=== PATIENT | female | born 1950 | race African-American/Black ===

== ENCOUNTER 2017-03-28 13:04 | Inpatient (IN) ==
--- NOTE | 2017-03-28 13:32 | Diag Imaging Result Doc PS360 ---
EXAM: HEAD W/O CONTRAST HISTORY: Stroke Alert- Brain attack TECHNIQUE: Dose reduction technique COMPARISON: 09/24/2010 FINDINGS: No parenchymal hemorrhage. No epidural or subdural hematoma. No subarachnoid hemorrhage. No mass identified on this noncontrasted exam. No hydrocephalus. No sinus opacification. Small old left frontoparietal infarct. This was not present on the prior exam. There is diffuse atrophy. Mild chronic microvascular ischemic changes.. IMPRESSION: 1.No hemorrhage 2.Atrophy with chronic microvascular ischemic changes and old left frontoparietal infarct Electronically signed by Lele Black 03/28/2017 1:29 PM
[2017-03-28] MEDS ORDERED: NS 1,000 ML IV ONE (13:35)
--- NOTE | 2017-03-28 14:01 | Diag Imaging Result Doc PS360 ---
EXAM: CHEST-PORTABLE HISTORY: AMS TECHNIQUE: AP COMPARISON: 02/03/2017 FINDINGS: The lungs are well expanded. The heart is not enlarged. The vessels are not distended. There are surgical clips in the right hilum. No pneumonia. No pleural effusions identified. IMPRESSION: Negative chest Electronically signed by Lele Black 03/28/2017 1:59 PM
--- NOTE | 2017-03-28 14:03 | EKG Report ---
Test Performed on : 03/28/2017 1:46:03 PM Test Reason : AMS Blood Pressure : / mmHG Vent. Rate : 063 BPM Atrial Rate : 063 BPM P-R Int : 162 ms QRS Dur : 092 ms QT Int : 436 ms P-R-T Axes : 065 000 015 degrees QTc Int : 446 ms Normal sinus rhythm. Possible Left atrial enlargement Borderline ECG When compared with ECG of 22-FEB-2016 09:39, premature ventricular complexes. are no longer present T wave inversion less evident in Anterior leads Unconfirmed Result
[2017-03-28 14:15] LABS: MANUAL DIFF NEEDED? NO
[2017-03-28 14:23] LABS: BASO% 0.4 % (0.0-0.8); EOS# 0.43 X1000 (0.0-0.7); EOS% 8.3 % (0.0-10.0); HEMATOCRIT 43.1 % (37.0-47.0); HEMOGLOBIN 14.3 g/dL (12.0-16.0); LYMPH# 1.06 X1000 (1.2-3.4); LYMPH% 20.5 % (20.5-51.1); MCH 31.9 PG (27-31); MCHC 33.2 g/dL (33-37); MCV 96.2 FL (81-99); MONO# 0.41 X1000 (0.11-0.59); MONO% 7.9 % (1.7-9.3); MPV 11.6 FL (7.4-10.4); NEUT% 62.9 % (42.2-75.2); PLT 192 X1000 (130-400); RBC 4.48 XMIL (4.2-5.4)
[2017-03-28 14:32] LABS: INR 1.08; PROTIME 11.4 Seconds (9.2-11.7)
[2017-03-28] MEDS ORDERED: NORCO-7.5 PO ONE (14:45)
[2017-03-28 14:47] LABS: AGAP 12; ALBUMIN 4.1 g/dL (3.5-5.0); ALKALINE PHOSPHATASE 70 U/L (32-104); BUN 10 mg/dL (8-22); CALCIUM 9.3 mg/dL (8.8-10.2); CHLORIDE 101 mmol/L (98-107); CK PROFILE 64 U/L (24-173); COSMO 276; GOT 21 U/L (10-30); GPT 14 U/L (10-36); POTASSIUM 4.2 mmol/L (3.5-5.1); SODIUM 139 mmol/L (136-145); TCO2 26 mmol/L (25-35); TOTAL BILIRUBIN 0.44 mg/dL (0.20-1.00); TOTAL PROTEIN 8.4 g/dL (6.3-8.3)
[2017-03-28 15:35] LABS: URINE CULTURE NEEDED? NO; URINE MICRO REVIEW NEEDED? NO; URINE SOURCE CLEAN CATCH
[2017-03-28 15:42] LABS: BILIRUBIN URINE NEGATIVE (NEGATIVE); BLOOD URINE NEGATIVE (NEGATIVE); COLOR STRAW; GLUCOSE URINE NEGATIVE (NEGATIVE); LEUKOCYTES URINE NEGATIVE (NEGATIVE); NITRITE URINE NEGATIVE (NEGATIVE); PROTEIN URINE NEGATIVE (NEGATIVE); SP GRAVITY URINE 1.003; TURBIDITY URINE CLEAR (CLEAR); UR EPITHELIAL CELLS <10 /HPF (<10); URINE BACTERIA NEGATIVE /HPF; URINE RBC <10 /HPF (<10); URINE WBC <10 /HPF (<10); UROBILINOGEN URINE NORMAL (NORMAL)
[2017-03-28 15:50] LABS: UR AMPHETAMINES QUAL NONE DETECTED (NONE DETECT); UR BARBITUATES QUAL NONE DETECTED (NONE DETECT); UR BENZODIAZEPIN QUAL NONE DETECTED (NONE DETECT); UR CANNABINOIDS QUAL NONE DETECTED (NONE DETECT); UR COCAINE QUAL NONE DETECTED (NONE DETECT); UR METHADONE QUAL NONE DETECTED (NONE DETECT); UR OPIATES QUAL NONE DETECTED (NONE DETECT); UR OXYCODONE QUAL NONE DETECTED (NONE DETECT); UR PCP QUAL NONE DETECTED (NONE DETECT)
--- NOTE | 2017-03-28 16:04 | PROVIDER DOCUMENTATION ---
This chart was entered by Zahraa Talavera Scribe, acting as scribe for Elsi Montana MD. HPI-Neurological Disorder - General Chief Complaint: Stroke-Like Symptoms Stated Complaint: STROKE LIKE SX Time Seen by Provider: 03/28/17 13:33 Source: patient, family Allergies/Adverse Reactions: Patient Allergies Allergy/AdvReac Type Severity Reaction Status Date / Time No Known Allergies Allergy Verified 03/28/17 14:59 Home Medications: Home Medication List Medication Instructions Recorded Confirmed Last Taken Type Unobtainable [Home Meds 03/28/17 03/28/17 Unknown History Unobtainable] - History of Present Illness-Neuro Nature of Presenting Problem: 66 yo F presents to the ER with complaint of slurred speech, staggering gate, and WOODS onset this morning. Daughter reports speech and gate have improved since this morning. Pt denies CP, SOB, abdominal pain. States she drinks 7-8 beers daily, had about 8 yesterday. Onset/Duration: reports: this morning Cognitive Baseline: alert, oriented x3 Gait Baseline: walks without assistance Associated Symptoms: reports: headache, slurred speech. denies: nausea, vomiting Review of Systems - Adult - REVIEW OF SYSTEMS - ADULT Constitutional: denies: chills, fever Eyes: reports: no symptoms reported Ears, Nose, Mouth & Throat: reports: no symptoms reported Cardiovascular: denies: chest pain, palpitations Respiratory: denies: cough, shortness of breath Gastrointestinal: denies: diarrhea, nausea, vomiting Genitourinary: reports: no symptoms reported Musculoskeletal: reports: no symptoms reported Integumentary: reports: no symptoms reported Neurological: reports: slurred speech. denies: dizziness/vertigo, headache/ migraines Psychiatric: reports: no symptoms reported Endocrine: reports: no symptoms reported Hematologic/Lymphatic: reports: no symptoms reported Allergic/Immunologic: reports: no symptoms reported All Other Systems: Reviewed and Negative Past History - Adult - PAST MEDICAL HISTORY-ADULT Review of Records: reports: Nursing Assessment Review, Medications Reviewed Gastrointestinal: reports: GERD, GI bleed, polyps Neurological: reports: TIA - PRIOR SURGERIES/PROCEDURES Surgical/Procedure History: reports: colonoscopy - IMMUNIZATION STATUS Childhood Immunizations: See Nurse Assessment Flu Vaccine: See Nurse Assessment Physical Exam- Neurological - Physical Exam-Neuro Initial Vital Signs Reviewed: Yes General Appearance: alert, no apparent distress Eye Exam: bilateral eye: normal inspection, PERRL, EOMI HENMT: normocephalic/atraumatic, normal ENT inspection, TMs normal, pharynx normal Head Injury: no evidence of injury. negative: ecchymosis, tenderness Neck: supple, normal inspection Respiratory: no respiratory distress, no accessory muscle use Cardiovascular: normal peripheral pulses, regular rate, rhythm Extremity: normal range of motion, non-tender, normal gait, normal inspection senior information security consultant Exam: normal hearing, normal speech, PERRL Coordination/Gait: normal finger to nose, normal gait Neurologic: grossly normal, no motor/sensory deficits Integumentary: normal color, warm/dry Psych/Mental Status: normal mood/affect, normal thought content, normal thought process, oriented x 3 Progress - PLAN OF CARE/RESULTS Progress/Plan/Lab Results: Vital Signs - 8 hr 03/28/17 13:10 03/28/17 15:31 Temperature 98.3 F Pulse Rate 79 73 Respiratory Rate 18 Blood Pressure 171/121 147/120 O2 Sat by Pulse Oximetry 100 99 Laboratory Results - last 24 hr 03/28/17 03/28/17 03/28/17 14:03 14:03 14:03 WBC 5.18 RBC 4.48 Hgb 14.3 Hct 43.1 MCV 96.2 MCH 31.9 H MCHC 33.2 RDW Std Deviation 13.9 Plt Count 192 MPV 11.6 H Immature Gran % (Auto) 0.0 Neut % (Auto) 62.9 Lymph % (Auto) 20.5 [place] % (Auto) 7.9 Eos % (Auto) 8.3 Baso % (Auto) 0.4 Immature Gran # (Auto) 0.00 Neut # (Auto) 3.26 Lymph # (Auto) 1.06 L [place] # (Auto) 0.41 Eos # (Auto) 0.43 Baso # (Auto) 0.02 PT INR PTT (Actin FS) Sodium 139 Potassium 4.2 Chloride 101 Carbon Dioxide 26 Anion Gap 12 BUN 10 Creatinine 0.7 Estimated GFR/1.73 m2 > 60 BUN/Creatinine Ratio 14 Glucose 94 Calculated Osmolality 276 Calcium 9.3 Total Bilirubin 0.44 AST 21 ALT 14 Alkaline Phosphatase 70 Creatine Kinase 64 Troponin T Total Protein 8.4 H Albumin 4.1 Globulin 4.3 Albumin/Globulin Ratio 1.0 Plasma Lactate Urine Source Urine Color Urine Turbidity Urine pH Ur Specific Bimble Urine Protein Ur Glucose (Stick) Ur Ketones (Stick) Urine Blood Urine Nitrite Urine Bilirubin Urobilinogen Dipstick Urine Leukocytes Urine WBC (Auto) Urine RBC (Auto) U Epithel Cells (Auto) Urine Bacteria (Auto) Urine Opiates Screen Ur Oxycodone Screen Ur Methadone, Qual Ur Barbiturates Screen Ur Phencyclidine Scrn Ur Amphetamines Screen U Benzodiazepines Scrn Urine Cocaine Screen U Cannabinoids Screen Plasma/Serum Ethyl Alc 03/28/17 03/28/17 03/28/17 14:03 14:03 14:15 WBC RBC Hgb Hct MCV MCH MCHC RDW Std Deviation Plt Count MPV Immature Gran % (Auto) Neut % (Auto) Lymph % (Auto) [place] % (Auto) Eos % (Auto) Baso % (Auto) Immature Gran # (Auto) Neut # (Auto) Lymph # (Auto) [place] # (Auto) Eos # (Auto) Baso # (Auto) PT 11.4 INR 1.08 PTT (Actin FS) 28.0 Sodium Potassium Chloride Carbon Dioxide Anion Gap BUN Creatinine Estimated GFR/1.73 m2 BUN/Creatinine Ratio Glucose Calculated Osmolality Calcium Total Bilirubin AST ALT Alkaline Phosphatase Creatine Kinase Troponin T < 0.010 Total Protein Albumin Globulin Albumin/Globulin Ratio Plasma Lactate 1.5 Urine Source Urine Color Urine Turbidity Urine pH Ur Specific [place] Urine Protein Ur Glucose (Stick) Ur Ketones (Stick) Urine Blood Urine Nitrite Urine Bilirubin Urobilinogen Dipstick Urine Leukocytes Urine WBC (Auto) Urine RBC (Auto) U Epithel Cells (Auto) Urine Bacteria (Auto) Urine Opiates Screen Ur Oxycodone Screen Ur Methadone, Qual Ur Barbiturates Screen Ur Phencyclidine Scrn Ur Amphetamines Screen U Benzodiazepines Scrn Urine Cocaine Screen U Cannabinoids Screen Plasma/Serum Ethyl Alc 03/28/17 03/28/17 15:30 15:30 WBC RBC Hgb Hct MCV MCH MCHC RDW Std Deviation Plt Count MPV Immature Gran % (Auto) Neut % (Auto) Lymph % (Auto) [place] % (Auto) Eos % (Auto) Baso % (Auto) Immature Gran # (Auto) Neut # (Auto) Lymph # (Auto) [place] # (Auto) Eos # (Auto) Baso # (Auto) PT INR PTT (Actin FS) Sodium Potassium Chloride Carbon Dioxide Anion Gap BUN Creatinine Estimated GFR/1.73 m2 BUN/Creatinine Ratio Glucose Calculated Osmolality Calcium Total Bilirubin AST ALT Alkaline Phosphatase Creatine Kinase Troponin T Total Protein Albumin Globulin Albumin/Globulin Ratio Plasma Lactate Urine Source CLEAN CATCH Urine Color STRAW Urine Turbidity CLEAR Urine pH 6.0 Ur Specific [place] 1.003 Urine Protein NEGATIVE Ur Glucose (Stick) NEGATIVE Ur Ketones (Stick) NEGATIVE Urine Blood NEGATIVE Urine Nitrite NEGATIVE Urine Bilirubin NEGATIVE Urobilinogen Dipstick NORMAL Urine Leukocytes NEGATIVE Urine WBC (Auto) <10 Urine RBC (Auto) <10 U Epithel Cells (Auto) <10 Urine Bacteria (Auto) NEGATIVE Urine Opiates Screen NONE DETECTED Ur Oxycodone Screen NONE DETECTED Ur Methadone, Qual NONE DETECTED Ur Barbiturates Screen NONE DETECTED Ur Phencyclidine Scrn NONE DETECTED Ur Amphetamines Screen NONE DETECTED U Benzodiazepines Scrn NONE DETECTED Urine Cocaine Screen NONE DETECTED U Cannabinoids Screen NONE DETECTED Plasma/Serum Ethyl Alc Orders Category Date Time Status Cardiac Monitoring DIRECTED Care 03/28/17 13:35 Active Finger Stick Blood Sugar (ED) DIRECTED Care 03/28/17 13:35 Active Saline Loc NOW Care 03/28/17 13:35 Active CHEST-PORTABLE [RAD] Stat Exams 03/28/17 13:35 Completed HEAD W/O CONTRAST [CT] Stat Exams 03/28/17 13:13 Completed MRA BRAIN W/O CONTRAST [MRI] Stat Exams 03/28/17 15:55 Ordered MRA NECK W/O CONT [MRI] Stat Exams 03/28/17 15:55 Ordered MRI BRAIN W/O CONTRAST [MRI] Stat Exams 03/28/17 15:55 Ordered ALCOHOL BLOOD Stat Lab 03/28/17 14:03 Completed CBC WITH ELECTRONIC DIFF [HEME] Stat Lab 03/28/17 14:03 Completed CK PROFILE [SP CHEM] Stat Lab 03/28/17 14:03 Completed COMPREHENSIVE METABOLIC PANEL [CHEM] Stat Lab 03/28/17 14:03 Completed LACTATE, PLASMA [CHEM] Stat Lab 03/28/17 14:15 Completed PROTIME WITH INR [COAG] Stat Lab 03/28/17 14:03 Completed PTT [COAG] Stat Lab 03/28/17 14:03 Completed TROPONIN T Stat Lab 03/28/17 14:03 Completed URINALYSIS W/POSS RFLX CULT-1 [URINALYSIS] Stat Lab 03/28/17 15:30 Completed URINE DRUG SCREEN Stat Lab 03/28/17 15:30 Completed 0.9% Sodium Chloride Inj [Ns] 1,000 ml Med 03/28/17 13:35 Active IV 150 mls/hr Hydrocodone/APAP 7.5 mg/325 mg [Jackson-7.5] Med 03/28/17 14:45 Discontinued 1 each PO NOW ONE Pulse Oximetry Stat Oth 03/28/17 13:35 Active EKG [EKG] Stat Ther 03/28/17 13:35 Draft Result Diagrams: 03/28/17 14:03 03/28/17 14:03 - EKG 1 Time of EKG reading by physician:: 13:46 EKG Read and Signed by:: Elsi Montana EKG Interpretation (*Must complete 3 of following elements*): Abnormal ( borderline) Rate: 63 Rhythm: normal sinus rhythm [place]: normal QRS: normal OR Interval: normal ST Wave: normal Comments: possible L atrial enlargement - XRAY 1 XRAY Study: Chest Impression: Normal (negative, per radiologist) - CT/MRI 1 CT Study: Head Impression: See EMR Report (no hemorrhage, atrophy with chronic microvascular ischemic changes and old L frontoparietal infarct, per radiologist) - CONSULTS/PCP/HOSPITALIST Notification #1 *Consult/PCP/Hospitalist*: Dr. Muñoz/Colleen Time Discussed: 16:02 Consult Disposition: Admit Departure - Departure Date of Disposition Decision: 03/28/17 Time of Disposition Decision: 16:03 DIAGNOSIS: TIA (transient ischemic attack), Alcohol withdrawal Disposition: ADMITTED INPATIENT 09 Certified Medical Emergency: Emergent Condition: Stable Referrals and Follow-Ups: Rm Levi MD [Primary Care Provider] - - Critical Care Note This patient required my direct & personal management of CC.: No This chart was documented by the indicated scribe, (Zahraa Talavera Scribe) and accurately reflects the services I performed and decisions made by me, Elsi Montana MD, as attested by the provider's signature.
--- NOTE | 2017-03-28 16:40 | Diag Imaging Result Doc PS360 ---
EXAM: MRI BRAIN W/O CONTRAST HISTORY: stroke symptoms TECHNIQUE: Axial, sagittal, and coronal images obtained COMPARISON: None. FINDINGS: There is evidence of a small recent infarct posteriorly in the left temporal and occipital lobes. Old left frontoparietal infarct. There is diffuse atrophy and addition to chronic microvascular ischemic changes. No mass or midline shift. No hydrocephalus. No epidural or subdural fluid collection. IMPRESSION: 1. Small faint recent left posterior temporal and occipital infarct 2. Old left frontoparietal infarct 3. Atrophy with chronic microvascular ischemic changes Electronically signed by Lele Black 03/28/2017 4:38 PM
--- NOTE | 2017-03-28 16:45 | Diag Imaging Result Doc PS360 ---
EXAM: MRA BRAIN W/O CONTRAST HISTORY: stroke symptoms TECHNIQUE: MIP images COMPARISON: None. FINDINGS: There is normal flow in each distal internal carotid artery. The anterior and middle cerebral arteries are only faintly seen. Normal flow in the distal vertebral arteries and basilar artery. Normal flow in the posterior cerebral arteries. IMPRESSION: Suboptimal exam with poor imaging of the anterior and middle cerebral arteries, but no focal stenosis or occlusion involving either distal internal carotid artery, basilar artery, or posterior cerebral arteries. Electronically signed by Lele Black 03/28/2017 4:42 PM
--- NOTE | 2017-03-28 16:47 | Diag Imaging Result Doc PS360 ---
EXAM: MRA NECK W/O CONT HISTORY: stroke symptoms TECHNIQUE: MIP images COMPARISON: None. FINDINGS: The proximal vertebral and common carotid arteries are are only faintly seen. No definite stenosis. Normal flow within each mid and distal common carotid artery. Normal proximal and mid internal carotid arteries. Normal mid vertebral arteries. IMPRESSION: No stenosis or occlusion within either common carotid artery or within either proximal internal carotid artery. Electronically signed by Lele Black 03/28/2017 4:45 PM
[2017-03-28 17:23] LABS: HDL 110 mg/dL (45-65); LDL 83 mg/dL; TRIGLYCERIDES 177 mg/dL (35-135); VLDL 35 mg/dL
[2017-03-28 17:24] LABS: HEMOGLOBIN A1C 4.9 % (4.8-6.0)
[2017-03-28] MEDS ORDERED: M.V.I.-12 10 ML, FOLIC ACID 1 MG, MAGNESIUM SULFATE 1 GM, THIAMINE 100 MG in NS 1,000 ML IV ONE (18:00)
[2017-03-28] MEDS: LIPITOR PO SCH (18:18)
[2017-03-28] MEDS: ASPIRIN PO SCH (18:18)
--- NOTE | 2017-03-28 19:06 | HISTORY AND PHYSICAL ---
PRIMARY CARE PROVIDER: Rm Levi. CHIEF COMPLAINT: Difficulty with speech. HISTORY OF PRESENT ILLNESS: Ms. Jose Manuel Gao is a 66-year-old female with a medical history of GI bleed six years ago, left CVA in the past, right breast cancer status post mastectomy, and alcohol abuse. She drank around 6 beers yesterday and went to bed around 9 p.m. She woke up about 08:30 this morning. She feels like she was normal at that time but started noticing her speech was slurred around 9 a.m. She also developed a left frontotemporal headache and generalized weakness. When her family came to see her they noticed that she was weak, but no increased weakness on one side versus the other. They noticed her stuttering. She denies any fever, chills, nausea, vomiting, or diarrhea. She denies any numbness or tingling. Neuro assessment is only positive for dysarthria with occasional mild expressive aphasia, and she is completely oriented. Strength is equal in all 4 extremities. A CAT scan of the brain showed her old left frontoparietal infarct. Given the fact that she still continued to have dysarthria, it was decided to admit for observation, MRI, MRA of the brain. MRI of the brain showed a small faint recent left posterior temporal and occipital infarct, and it also showed the old left frontoparietal infarct. Carotid arteries were clear. Will admit to the medical floor, allow for permissive hypertension, start her on aspirin and statin. PAST MEDICAL HISTORY: GI bleed 6 years ago. Right breast cancer status post mastectomy. Left frontoparietal infarct that was old. SURGICAL HISTORY: Right mastectomy, hysterectomy. SOCIAL HISTORY: Quit smoking 18 years ago but prior to that smoked 1 pack per day since age of 17. Drinks a half a case of beer or less per day, denies illicit drug use, and lives with her . FAMILY HISTORY: Her father had gastric cancer. There is hypertension and asthma in the family. REVIEW OF SYSTEMS: Fourteen point review of systems were complete and all were negative except for those mentioned above in HPI. PHYSICAL EXAMINATION: VITAL SIGNS: Temperature 98.3 degrees, heart rate 73, respiratory rate 18, blood pressure 147/120, saturation 99% on room air. She is 5 feet 6 inches tall, 142 pounds. BMI is 22.9. GENERAL: Ms. Jose Manuel Gao is a right-hand dominant, 66-year-old female who is in no acute distress. She is able answer questions appropriately but with slurred speech, and she is in no acute distress. HEENT: Atraumatic, normocephalic. Pupils are equal, round, reactive to light. Extraocular movements are intact. Mucous membranes are moist. NECK: No JVD or carotid bruits noted. CARDIOVASCULAR: S1, S2. Regular rate and rhythm. No rubs, gallops, murmurs. PULMONARY: Clear to auscultation. Bilateral breath sounds. No accessory muscle use or work of breathing noted. GI: Soft, nontender, nondistended. Positive bowel sounds x4. EXTREMITIES: No edema noted. +2 dorsalis and radial pulses. SKIN: Warm, dry, intact. NEUROLOGIC: She was able to move all extremities, 5/5 strength. She had equal pupils that were reactive. Her tongue was midline. She had facial symmetry. No sensory loss issues. LABORATORY DATA: White blood cells 5000, hemoglobin 14, hematocrit 43, platelet count 192,000. INR 1.08, PTT is 28. Sodium 139, potassium 4.2, BUN 10, creatinine 0.7, glucose 94. Hemoglobin A1c is 4.9. Bilirubin 0.44, AST 21, ALT 14. CK 64. Troponin less than 0.01. Protein is 8.4. Triglycerides 177, cholesterol total is 228. Serum lactate is 1.5. Urinalysis negative. Urine drug screen negative. Alcohol level negative. IMAGING: Head CT: No hemorrhage. Atrophy with chronic microvascular ischemic changes and an old left frontoparietal infarct. Chest x-ray negative. EKG: Normal sinus rhythm, rate is 63, QTc is 446. Brain MRA: Suboptimal exam with poor imaging of the anterior and middle cerebral arteries but no focal stenosis or occlusion including either distal internal carotid artery, basilar artery or posterior cerebral arteries. Brain MRI: Small faint recent left posterior temporal occipital infarct, old left frontoparietal infarct, atrophy with chronic microvascular ischemic changes. Neck MRA: No stenosis or occlusion within either common carotid artery or within either proximal internal carotid artery. ASSESSMENT AND PLAN: 1. A small, faint, recent left posterior temporal and occipital infarct, also with old left frontoparietal infarct. Residuals at this time are dysarthria and the occasional expressive aphasia which the family states they feel is improving since she has been here. We will allow for permissive hypertension, start her on aspirin and a statin. Consult Neurology. Consult Physical Therapy and Speech Therapy, and perform q.1 hour neuro checks. Will also give IV fluid hydration throughout the night. 2. Alcohol abuse. Apparently she drinks a half a case or less of beer per day. We will do p.r.n. Ativan and daily banana bag. 3. Gastrointestinal bleed history approximately 6 years ago. Will monitor closely for gastric irritation secondary to aspirin use. 4. History of rectal polyps. The patient denies any symptoms of gastrointestinal bleeding at this time. Dictated by ZAK Hernandez for Isael Reilly MD cc: ZAK Hernandze MD Wayne E. Thomas, MD
[2017-03-28] MEDS ORDERED: ATIVAN IV PRN (20:56)
[2017-03-28] MEDS ORDERED: FIORICET PO PRN (20:56)
[2017-03-28] MEDS ORDERED: TYLENOL PO PRN (20:56)
[2017-03-28] MEDS ORDERED: ZOFRAN IV PRN (20:56)
[2017-03-29 06:15] LABS: MANUAL DIFF NEEDED? NO
[2017-03-29 06:28] LABS: BASO% 0.5 % (0.0-0.8); EOS# 0.48 X1000 (0.0-0.7); EOS% 11.4 % (0.0-10.0); HEMATOCRIT 41.6 % (37.0-47.0); HEMOGLOBIN 13.8 g/dL (12.0-16.0); LYMPH# 1.29 X1000 (1.2-3.4); LYMPH% 30.6 % (20.5-51.1); MCH 32.5 PG (27-31); MCHC 33.2 g/dL (33-37); MCV 98.1 FL (81-99); MONO% 7.1 % (1.7-9.3); MPV 11.7 FL (7.4-10.4); NEUT% 50.4 % (42.2-75.2); PLT 163 X1000 (130-400); RBC 4.24 XMIL (4.2-5.4)
[2017-03-29 06:36] LABS: AGAP 12; ALBUMIN 3.8 g/dL (3.5-5.0); ALKALINE PHOSPHATASE 63 U/L (32-104); BUN 7 mg/dL (8-22); CALCIUM 8.8 mg/dL (8.8-10.2); CHLORIDE 105 mmol/L (98-107); COSMO 279; GOT 24 U/L (10-30); GPT 13 U/L (10-36); POTASSIUM 3.7 mmol/L (3.5-5.1); SODIUM 141 mmol/L (136-145); TCO2 24 mmol/L (25-35); TOTAL BILIRUBIN 0.58 mg/dL (0.20-1.00); TOTAL PROTEIN 7.6 g/dL (6.3-8.3)
[2017-03-29 06:55] LABS: INR 1.11; PROTIME 11.7 Seconds (9.2-11.7); PTT 28.5 Seconds (22.0-36.0)
[2017-03-29] MEDS: M.V.I.-12 10 ML, FOLIC ACID 1 MG, MAGNESIUM SULFATE 1 GM, THIAMINE 100 MG in NS 1,000 ML IV SCH (09:00)
[2017-03-29] MEDS: LIPITOR PO SCH (09:01)
[2017-03-29] MEDS: ASPIRIN PO SCH (09:01)
--- NOTE | 2017-03-29 14:14 | PROGRESS NOTE ---
DATE: 03/29/2017 SUBJECTIVE: Patient reports feeling fine. Denies any headache, nausea, or vomiting. OBJECTIVE: Vital Signs: Temperature 98.2 degrees, heart rate 63, respiratory rate 20, blood pressure 140/75, O2 saturation 98% on room air. General: This is a chronically ill-looking, also looking older than her age, 66-year-old female lying in bed in no acute distress. HEENT: Head is normocephalic and atraumatic. Anicteric sclerae and pale conjunctivae. Mucous membranes moist. Neck: Supple. No JVD noted. No carotid bruits. No lymphadenopathy. No thyromegaly. Cardiovascular: S1 and S2 heard. No murmurs, gallops, or rubs. Regular rate and rhythm. Respiratory: Clear bilaterally to auscultation. No work of breathing or using accessory muscles. Abdomen: Soft, nontender to palpation. Bowel sounds present. No organomegaly. Extremities: No clubbing, cyanosis, or edema. Peripheral pulses present in both legs. Neurological: Patient has expressive aphasia. Muscle strength 5/5 in all 4 extremities. No dysmetria. Gait not evaluated. Sensation is intact. Babinski negative. LABORATORY DATA: The labs are unremarkable, with hemoglobin A1c that is normal and the cholesterol is 228. ASSESSMENT AND PLAN: 1. Left posterior temporal and occipital infarct. Stable. As a residual, she has expressive aphasia. Physical Therapy is working with this patient. Swallowing function is okay, so she is eating Healthy Heart diet. My plan is to keep this patient over the weekend here working with Physical Therapy, and on Friday, if this patient is able to move by herself, we will probably set up speech therapy and physical therapy as an outpatient. 2. Alcohol abuse. The patient is on Ativan p.r.n., but of course she did not show any signs of alcohol withdrawal. 3. History of gastrointestinal bleeding. The hemoglobin is stable so far. The patient is on Protonix. We will continue with the same management. 4. History of rectal polyps. Aware. cc: Isael Reilly MD
[2017-03-30] MEDS: ASPIRIN PO SCH (08:37)
[2017-03-30] MEDS: LIPITOR PO SCH (08:37)
[2017-03-30] MEDS: M.V.I.-12 10 ML, FOLIC ACID 1 MG, MAGNESIUM SULFATE 1 GM, THIAMINE 100 MG in NS 1,000 ML IV SCH (10:31)
--- NOTE | 2017-03-30 14:25 | ECHO REPORT ---
ORDER DATE: 03/29/2017 ECHOCARDIOGRAPHIC MEASUREMENTS: 1. Interventricular septum 1.2. 2. Left ventricular posterior wall 1.1. 3. Diastolic diameter 4.0. 4. Left atrium 3.8. 5. Aorta 2.8. FINDINGS: 1. Mitral valve was normal. 2. Tricuspid valve was normal. 3. Aortic valve leaflets are trileaflet. 4. Pulmonic valve was normal. 5. Normal left ventricular cavity size. Estimated ejection fraction of 65%. 6. There is trace mitral regurgitation. Mild tricuspid regurgitation. 7. Peak velocity across the tricuspid valve was 2.3 m/sec. Peak velocity across the aortic valve less than 2 m/sec. 8. By Doppler studies there is no aortic stenosis or regurgitation. 9. There is no pericardial effusion or obvious intracardiac mass or thrombus seen. cc: MD Susan Bro CRNP
--- NOTE | 2017-03-30 16:32 | PROGRESS NOTE ---
DATE: 03/30/2017 SUBJECTIVE: Patient reports feeling fine. No headache. No nausea or vomiting. No new neurological symptoms. OBJECTIVE: Vital Signs: Temperature 97.5 degrees, heart rate 69, respiratory rate 18, blood pressure 152/71. O2 saturation 100% on room air. General Examination: This is a chronically ill- looking and also looking older than her age, 66-year-old female lying in bed, in no acute distress. HEENT: Head is normocephalic, atraumatic. Anicteric sclerae and pale conjunctivae. Mucous membranes moist. Neck: Supple. No JVD noted. No carotid bruits. No lymphadenopathy. No thyromegaly. Cardiovascular: S1, S2 heard. No murmurs, gallops, or rubs. Regular rate and rhythm. Respiratory: Clear bilaterally to auscultation. No work of breathing or using accessory muscles. Abdomen: Soft, nontender to palpation. Bowel sounds present. No organomegaly. Extremities: No clubbing, cyanosis, or edema. Peripheral pulses present in both legs. Neurological: Patient has expressive aphasia and muscle strength 5/5 in all 4 extremities. No dysmetria. Gait not evaluated. Sensation is intact. Babinski negative. LABORATORY DATA: Reviewed. ASSESSMENT AND PLAN: 1. Left posterior temporal occipital infarct. Outside of residual, patient still has expressive aphasia. Physical therapy also working with this patient. Swallowing function is okay so she is feeling okay. We are going to keep this patient over the weekend. Working with physical therapy and we will set up most probably speech therapy as an outpatient. 2. Alcohol abuse, aware. Patient is on Ativan p.r.n., but of course, no signs of alcohol withdrawal. 3. History of gastrointestinal bleeding. Hemoglobin is stable so far. 4. History of rectal polyps, aware. cc: Isael Reilly MD
[2017-03-31] MEDS: ASPIRIN PO SCH (09:08)
[2017-03-31] MEDS: LIPITOR PO SCH (09:08)
[2017-03-31] MEDS: M.V.I.-12 10 ML, FOLIC ACID 1 MG, MAGNESIUM SULFATE 1 GM, THIAMINE 100 MG in NS 1,000 ML IV SCH (09:08)
[2017-03-31 11:33] VITALS: BP 152/71
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
--- NOTE | 2017-04-01 09:01 | DISCHARGE SUMMARY ---
ADMISSION DATE: 03/28/2017 DISCHARGE DATE: 03/31/2017 CONSULTATIONS: Naya Payne III, MD with Neurology. PERTINENT PROCEDURES: 1. Head CT showed no hemorrhage, atrophy with chronic microvascular ischemic changes and old left frontal parietal infarct. 2. Brain MRA: Suboptimal exam with poor imaging of the anterior and middle cerebral arteries, but no focal stenosis or occlusion involving either distal internal carotid artery. 3. Brain MRI showed small faint recent left posterior temporal and occipital infarct. Old left frontoparietal infarct. Atrophy with chronic microvascular ischemic changes. 4. Neck MRA showed no stenosis or occlusion within either common carotid artery or within either proximal internal carotid artery. 5. Echocardiogram showed an EF of 65%. DISCHARGE DIAGNOSES: 1. Left posterior temporal occipital infarct. The patient has worked with physical therapy. She will follow up with speech therapy on outpatient basis. 2. Alcohol abuse. Aware. The patient has been educated daily on abstinence. 3. Gastrointestinal bleed history. Hemoglobin and hematocrit has remained stable. 4. Rectal polyp history, aware. 5. Left-sided cerebrovascular accident in the past. Aware. 6. Right breast cancer, status post mastectomy. Aware. HOSPITAL COURSE: Ms. Gao is a 66-year-old female with a past medical history of GI bleed, left CVA, right breast cancer, status post mastectomy, alcohol abuse. The patient stated that she drank around 6 beers the day before admission. She went to bed about 9 p.m., woke up at 8:30 in the morning. She feels like she was normal, but started noticing that her speech was slurring around 9 a.m. She developed a left frontotemporal headache and generalized weakness. Her family came to visit her. They noticed she was weak, but no increased weakness on one side versus the other. They noticed her stuttering. She was brought to the ED. CAT scan of the brain showed an old left frontoparietal infarct. She was still having some dysarthria, so it was decided that the patient would be admitted for observation. She underwent MRI and MRA of the neck and brain. The MRI showed a small faint recent left posterior temporal and occipital infarct, as well as the old left frontoparietal infarct. Her carotids were clear. The patient again was admitted to the medical floor and allowed for permissive hypertension for 24 hours and started on aspirin and a statin and monitored for any alcohol withdrawal. She was given p.r.n. Ativan and a daily banana bag. Given her GI bleed history, that was 6 years ago, she was still monitored closely for any gastric irritation and/or bleeding secondary to her aspirin use. The patient did work with physical therapy. Neurology was consulted. They did not have anything to add other than for the patient to be aggressive with her management of her risk factors and encouraged her to follow up with her primary care physician and there was nothing urgently to add from neurological standpoint. The patient is going to be discharged home today to follow up with the speech therapist on an outpatient basis. VITAL SIGNS: Temperature is 98, heart rate 61, respirations 16, blood pressure 152/71, O2 is 96% on room air. DISCHARGE DIET: Healthy heart. DISCHARGE MEDICATIONS: 1. Aspirin 81 mg p.o. daily. 2. Lipitor 40 mg p.o. daily. FOLLOWUP: The patient is being discharged home with [facility] rehab access. That will start tomorrow at 2 p.m. as well as [facility]. Follow up with her primary care physician, Dr. Gurmeet Abdalla in 2 weeks, as well as follow up with the speech therapist outpatient. Patient can return to the ED for any worsening of symptoms. DISCHARGE TIME: 30 minutes. Dictated by ZAK Mac for Isael Reilly MD cc: MD Rm Epstein MD MTDD
== END 2017-03-31 15:18 | disposition home health service (06) ==
LOC: ED 13:04 → 3N 20:05
PROVIDERS: ATTEND Internal Medicine

== ENCOUNTER 2019-02-08 10:51 | Inpatient (IN) ==
[2019-02-08 12:14] LABS: INR 1.29; PROTIME 17.1 Seconds (11.0-16.0)
[2019-02-08 12:19] LABS: URINE SOURCE CATH
[2019-02-08 12:21] LABS: AGAP 10; ALB/GLOB RATIO 0.8; ALKALINE PHOSPHATASE 58 U/L (32-104); BUN 11 mg/dL (8-22); CALCIUM 8.4 mg/dL (8.8-10.2); CHLORIDE 107 mmol/L (98-107); COSMO 281; CREATININE 0.6 mg/dL (0.5-0.9); ESTIMATED GFR > 60; GLUCOSE 146 mg/dL (70-104); GOT 13 U/L (10-30); GPT 6 U/L (10-36); POTASSIUM 3.2 mmol/L (3.5-5.1); SODIUM 140 mmol/L (136-145); TCO2 23 mmol/L (25-35); TOTAL BILIRUBIN 0.27 mg/dL (0.20-1.00); TOTAL PROTEIN 6.9 g/dL (6.3-8.3)
[2019-02-08 12:26] LABS: BILIRUBIN URINE NEGATIVE (NEGATIVE); BLOOD URINE TRACE (NEGATIVE); COLOR ORANGE; GLUCOSE URINE NEGATIVE (NEGATIVE); KETONE URINE NEGATIVE (NEGATIVE); LEUKOCYTES URINE NEGATIVE (NEGATIVE); NITRITE URINE NEGATIVE (NEGATIVE); PROTEIN URINE 600 mg/dL (NEGATIVE); SP GRAVITY URINE 1.032; TURBIDITY URINE TURBID (CLEAR); UROBILINOGEN URINE NORMAL (NORMAL)
[2019-02-08 12:32] LABS: BASO# 0.04 X1000 (0.0-0.2); BASO% 0.5 % (0.0-0.8); EOS# 0.36 X1000 (0.0-0.7); EOS% 4.6 % (0.0-10.0); HEMATOCRIT 26.1 % (37.0-47.0); HEMOGLOBIN 8.2 g/dL (12.0-16.0); IMM GRAN# 0.02 X1000 (0.0-0.04); IMM GRAN% 0.3 % (0.0-0.5); LYMPH# 1.55 X1000 (1.2-3.4); LYMPH% 19.7 % (20.5-51.1); MCH 29.7 PG (27-31); MCHC 31.4 g/dL (33-37); MCV 94.6 FL (81-99); MONO# 0.39 X1000 (0.11-0.59); MPV 10.8 FL (7.4-10.4); NEUT# 5.51 X1000 (1.4-6.5); NEUT% 69.9 % (42.2-75.2); PLT 310 X1000 (130-400); RBC 2.76 XMIL (4.2-5.4); RDW 13.9 % (11.5-14.5); WBC 7.87 X1000 (4.8-10.8)
[2019-02-08 12:32] LABS: UR EPITHELIAL CELLS >10 /HPF (<10); URINE BACTERIA NEGATIVE /HPF; URINE RBC <10 /HPF (<10); URINE WBC 20-40 /HPF (<10)
[2019-02-08 12:48] LABS: URINE CASTS GRANULAR PRESENT; URINE CRYSTALS NONE SEEN; URINE SMALL ROUND CELLS NONE SEEN
[2019-02-08] MEDS ORDERED: KLOR-CON PO ONE (13:00)
--- NOTE | 2019-02-08 13:00 | PROVIDER DOCUMENTATION ---
This chart was entered by Britany Bolanos Scribe, acting as scribe for Richie Mac MD. HPI-Abdominal Pain/GI Problem - General Chief Complaint: GI Bleed Stated Complaint: GI BLEED X20 MINS Time Seen by Provider: 02/08/19 11:14 Source: patient Allergies/Adverse Reactions: Patient Allergies Allergy/AdvReac Type Severity Reaction Status Date / Time No Known Allergies Allergy Verified 01/20/19 07:40 Home Medications: Home Medication List Medication Instructions Recorded Confirmed Last Taken Type Aspirin 81 mg PO DAILY chewtab 03/31/17 02/08/19 10/24/17 09:00 Rx 81 mg Clopidogrel [Plavix] 75 mg PO DAILY tablet 10/28/17 02/08/19 Unknown Rx Letrozole [Femara] 2.5 mg PO DAILY tablet 10/28/17 02/08/19 Unknown Rx Acetaminophen [Tylenol] 325 mg PO Q6HR PRN 02/08/19 02/08/19 Unknown History Amlodipine Besylate [Norvasc] 5 mg PO DAILY 02/08/19 02/08/19 Unknown History Metoprolol [Lopressor] 25 mg PO DAILY 02/08/19 02/08/19 Unknown History Multivitamin [Daily Value] 1 ea PO DAILY 02/08/19 02/08/19 Unknown History Pravastatin Sodium [Pravachol] 20 mg PO DAILY 02/08/19 02/08/19 Unknown History - History of Present Illness-ABD Nature of Presenting Problems: Patient is a 68 year old female who presents to the ED with rectal bleeding that started this morning. Patient states having 2 episodes of rectal bleeding with stool. Family report patient had one syncopal episode this morning. Patient denies abdominal pain. Family states patient takes Plavix. Quality of Pain: reports: none Severity in ED: reports: mild Onset/Duration: reports: this morning Timing: reports: still present Activities at Onset: reports: light activity Associated Symptoms: reports: syncope, other (rectal bleeding) Last BM: this morning Dark Stools Present?: reports: bright red blood Rectal Bleeding: reports: blood streaks on stool Rectal Pain: reports: none Emesis Description: reports: none Bruising or Bleeding Gums?: No Similar Symptoms Previously?: No Recently seen or treated by another doctor?: No Review of Systems - Adult - REVIEW OF SYSTEMS - ADULT Constitutional: reports: no symptoms reported. denies: chills, fever, fatique Eyes: reports: no symptoms reported Ears, Nose, Mouth & Throat: reports: no symptoms reported Cardiovascular: reports: no symptoms reported Respiratory: reports: no symptoms reported Gastrointestinal: reports: see HPI, rectal bleeding. denies: abdominal pain, diarrhea, nausea, vomiting Genitourinary: reports: no symptoms reported Musculoskeletal: reports: no symptoms reported Integumentary: reports: no symptoms reported Neurological: reports: see HPI, syncope. denies: dizziness/vertigo, headache/migraines, numbness, seizure, tremors Psychiatric: reports: no symptoms reported Endocrine: reports: no symptoms reported Hematologic/Lymphatic: reports: no symptoms reported Allergic/Immunologic: reports: no symptoms reported All Other Systems: Reviewed and Negative Past History - Adult - PAST MEDICAL HISTORY-ADULT Review of Records: reports: Nursing Assessment Review, Medications Reviewed, Social history reviewed & non-contributory. Major Childhood Illnesses: reports: denies history Cardiovascular: reports: denies history Respiratory: reports: denies history Gastrointestinal: reports: GERD, GI bleed, polyps Obstetrical/Gynecological: reports: denies history Genitourinary: reports: denies history Musculoskeletal: reports: denies history Neurological: reports: CVA, TIA Endocrine/Immune: reports: denies history Other Conditions: reports: denies history - PRIOR SURGERIES/PROCEDURES Surgical/Procedure History: reports: colonoscopy, hysterectomy, other (mastec kaleb) - IMMUNIZATION STATUS Childhood Immunizations: See Nurse Assessment Flu Vaccine: See Nurse Assessment - FAMILY HISTORY Family History: reviewed, not pertinent - SOCIAL HISTORY Smoking: cigarettes (former) Substance Use: denies Living Situation: family Physical Exam-General - PHYSICAL EXAM-ADULT Initial Vital Signs Reviewed: Yes - CONSTITUTIONAL General Appearance: alert, no apparent distress. negative: lethargic, slow to respond - HEAD, EARS, NOSE, MOUTH & THROAT HENMT: moist mucous membranes. negative: angioedema, hearing deficit - RESPIRATORY Respiratory: chest non-tender, lungs clear, normal breath sounds. negative: cr ackles, rhonchi - CARDIOVASCULAR Cardiovascular: normal peripheral pulses, regular rate, rhythm. negative: tachycardia, systolic murmur - GASTROINTESTINAL (ABDOMEN) Abdominal Exam: normal bowel sounds, non tender, soft. negative: guarding, rebound - GENITOURINARY Rectal Exam: other (bright red blood clots present). negative: hemorrhoids, mass, tenderness - MUSCULOSKELETAL Extremity: non-tender, normal inspection. negative: deformity, swelling - SKIN Integumentary: normal color, normal turgor, warm/dry. negative: cyanosis, ecchymosis, jaundice - NEUROLOGIC Neurologic: grossly normal, no motor/sensory deficits. negative: aphasia, facial droop - PSYCHIATRIC Psych/Mental Status: normal mood/affect, oriented x 3. negative: paranoid Progress - PLAN OF CARE/RESULTS Progress/Plan/Lab Results: Vital Signs - 8 hr 02/08/19 11:02 Temperature 97.7 F Pulse Rate 106 H Respiratory Rate 14 Blood Pressure 121/73 O2 Sat by Pulse Oximetry 99 02/08/19 11:20 Stool Occult Blood (OPAL) - Final Stool Orders Category Date Time Status CBC WITH ELECTRONIC DIFF [HEME] Stat Lab 02/08/19 11:25 Uncollected COMPREHENSIVE METABOLIC PANEL [CHEM] Stat Lab 02/08/19 11:25 Uncollected OCCULT BLOOD SCREENING [STOOL] Stat Lab 02/08/19 11:20 Completed PT [PROTIME WITH INR] [COAG] Stat Lab 02/08/19 11:25 Uncollected PTT [COAG] Stat Lab 02/08/19 11:25 Uncollected UA [URINALYSIS W/POSS RFLX CULT] [URINALYSIS] Stat Lab 02/08/19 11:27 Uncollected Result Diagrams: 02/08/19 11:40 02/08/19 11:40 - CT/MRI 1 CT Study: Abdomen, Pelvis Impression: See EMR Report (EXAM: CT ABD/PELVIS W/IV CONT ONLY 02/08/2019 HISTORY: colitis TECHNIQUE: This exam was performed using automated exposure control, adjustment of mA or kV according to patient size, and/or use of iterative reconstruction technique. COMMENT: The current examination is compared with 04/22/2012. There is a right pleural effusion and a very small left pleural effusion. The fluid collections were not present on the previous study. There is also a small pericardial effusion which was not present previously. Some compressive atelectasis is present in the right lower lobe and to a lesser extent in the posterior costophrenic sulcus of the left lower lobe. There are atherosclerotic calcifications in the aorta. There is no evidence of aneurysm and the mesenteric and renal arteries are patent. The spleen and adrenal glands are not enlarged. The stomach is not distended. There are no apparent gallstones. The kidneys are without evidence of hydronephrosis or mass. The liver is unremarkable. The pancreas is unremarkable. There is no evidence of significant adenopathy. There is some fluid gas and fecal debris in the colon without evidence of mucosal thickening. Pelvis: The appendix is normal in appearance. There is a small amount of free fluid. The uterus and what appears to have been a right ovarian mass has apparently been resected since the previous study. The urinary bladder is not distended. There is gas and stool in the rectum. There are some degenerative disc changes in the lumbar spine. No acute bony abnormalities are present. IMPRESSION: Pleural effusions particularly on the right with compressive atelectasis in the right lower lobe. The possibility of pneumonia cannot be excluded. There is no evidence of colitis. Electronically signed by Chris Mills 02/08/2019 1:46 PM 02/08/19 1346 Interpreting Physician: Chris Mills MD Dictated Date/Time: 02/08/19 1339 cc: Richie Mac MD; Rm Levi MD) - CONSULTS/PCP/HOSPITALIST Notification #1 *Consult/PCP/Hospitalist*: ZAK Davis for Hospitalist Time Discussed: 12:57 Reason/Comments: Dr. Mac consulted with Susan about patient. Consult Disposition: Will see in ED, Admit Departure - Departure Date of Disposition Decision: 02/08/19 Time of Disposition Decision: 12:58 DIAGNOSIS: GI bleed Disposition: ADMITTED INPATIENT 09 Certified Medical Emergency: Emergent Condition: Fair - Critical Care Note This patient required my direct & personal management of CC.: No Attestation - Physician/ MARRY Attestation Patient care was provided by Advanced Practice Provider:: No The physician spent face to face time with patient:: Yes Advanced Practice Provider documentation review:: Supervising physician onsite a nd consulted in the evaluation and care of this patient. The physician did have a face to face encounter with the patient. This chart was documented by the indicated scribe, (Britany Bolanos Scribe) and accurately reflects the services I performed and decisions made by me, Richie Mac MD, as attested by the provider's signature.
[2019-02-08] MEDS ORDERED: ZOFRAN IV PRN (13:22)
[2019-02-08] MEDS: NS 1,000 ML IV SCH ×2 (13:30→21:30)
[2019-02-08] MEDS: PROTONIX 80 MG in NS 80 ML IV SCH (13:40)
--- NOTE | 2019-02-08 13:49 | Diag Imaging Result Doc PS360 ---
EXAM: CT ABD/PELVIS W/IV CONT ONLY 02/08/2019 HISTORY: colitis TECHNIQUE: This exam was performed using automated exposure control, adjustment of mA or kV according to patient size, and/or use of iterative reconstruction technique. COMMENT: The current examination is compared with 04/22/2012. There is a right pleural effusion and a very small left pleural effusion. The fluid collections were not present on the previous study. There is also a small pericardial effusion which was not present previously. Some compressive atelectasis is present in the right lower lobe and to a lesser extent in the posterior costophrenic sulcus of the left lower lobe. There are atherosclerotic calcifications in the aorta. There is no evidence of aneurysm and the mesenteric and renal arteries are patent. The spleen and adrenal glands are not enlarged. The stomach is not distended. There are no apparent gallstones. The kidneys are without evidence of hydronephrosis or mass. The liver is unremarkable. The pancreas is unremarkable. There is no evidence of significant adenopathy. There is some fluid gas and fecal debris in the colon without evidence of mucosal thickening. Pelvis: The appendix is normal in appearance. There is a small amount of free fluid. The uterus and what appears to have been a right ovarian mass has apparently been resected since the previous study. The urinary bladder is not distended. There is gas and stool in the rectum. There are some degenerative disc changes in the lumbar spine. No acute bony abnormalities are present. IMPRESSION: Pleural effusions particularly on the right with compressive atelectasis in the right lower lobe. The possibility of pneumonia cannot be excluded. There is no evidence of colitis. Electronically signed by Chris Mills 02/08/2019 1:46 PM
[2019-02-08] MEDS ORDERED: OFIRMEV 1000 MG/ISOTONIC SOLN 1,000 MG/100 ML BOTTLE IV PRN (14:09)
[2019-02-08 14:52] LABS: IRON SATURATION 20 %; TIBC 208 ug/dL; TOTAL IRON 42 ug/dL (49-151); UNBOUND IRON 166 ug/dL (112-346)
[2019-02-08] MEDS: MORPHINE IV PRN ×2 (14:52→22:49)
--- NOTE | 2019-02-08 14:58 | HISTORY AND PHYSICAL ---
PRIMARY CARE PHYSICIAN: Dr. Rm Levi ONCOLOGIST: Dr. Randle CHIEF COMPLAINT: Bloody stool. HISTORY OF PRESENT ILLNESS: Ms. Jose Manuel Gao is a 68-year-old female with a medical history of diverticular GI bleed around 6 years ago, left CVA, right breast cancer, status post mastectomy and alcohol abuse. She denies any recent alcohol use at this time. Also had a recent admission in 10/2017 with an acute CVA at that time as well. Ms. Gao states that over the last month, she has had at least a 24-pound weight loss. She has been dealing with severe spinal pain and even went to [facility] for that. She stayed there for about 2 weeks where they diagnosed and treated her for what she states was MRSA in the spine and was transferred from there to [facility] for about a month. She was discharged home with daily IV Telavancin 450 mg IV every day to continue until at least 03/03/2019 and then has been followed by Dr. Sanjuana Sanchez for that. She is continuing to complain of back pain. She denies any abdominal pain but states that she went and got her treatment this morning, went home and had 2 large bloody, bright red and dark red, bowel movements. When the family was assisting her to the car, she states she got dizzy and lightheaded and had a pass-out spell which did not last very long. When she first presented to the emergency department, her blood pressure was stable at 121/73. It has somewhat dropped a little bit since then. Pulse rate was a little tachycardic at 106, but even with palpation to the abdomen, she denies pain. She had a decreased appetite and a weight loss again of 24 pounds over the last month. So for her stroke history, she has been on Plavix and aspirin, and her last dose she took was this morning. For the back pain, she has been taking Tylenol. She denies taking any GI agitating medications such as ibuprofen. Reviewing records, it appears that in 2013, she had an ileocolonoscopy by Dr. Ervin with cold biopsy polypectomy. She did have some rectal bleeding with that as well. But at that time in 2013, she had bright red stools then as well. Then again in [address] Mixon, she had an EGD and a colonoscopy for a GI bleed then as well, and there it was found she had diverticulosis left sided that was possibly from a bleed. It was also in 2016 when she had right-sided breast cancer, had the mastectomy and had to have that reperformed and the margins cleared by Dr. Beauchamp. So we will consult Dr. Acuña for the reported infection. We will consult Gastroenterology for the reported GI bleed. PAST MEDICAL HISTORY: 1. GI bleed in 2013 and another reported one in 2016, likely diverticular. 2. Diverticulosis. 3. Chronic constipation. 4. Right-sided breast cancer, status post mastectomy. 5. Left frontoparietal infarct. 6. A more recent infarct, cerebrovascular accident in 10/2017. PAST SURGICAL HISTORY: 1. Right mastectomy. 2. Hysterectomy. 3. In 2016, EGD and colonoscopy. 4. After the right mastectomy, had more margins removed. SOCIAL HISTORY: Quit smoking in 1998 but prior to that smoked 1 pack per day since age of 17. Reported alcohol: Drinks half a case of beer or less per day. Denies illicit drug use. Lives with her . FAMILY HISTORY: Father had gastric cancer. There is also hypertension and asthma in the family. ALLERGIES: No known drug allergies. HOME MEDICATIONS: 1. Tylenol 325 mg p.o. every 6 hours p.r.n. 2. Multivitamin once daily. 3. Metoprolol 25 mg p.o. daily. 4. Norvasc 5 mg p.o. daily. 5. Pravachol 20 mg p.o. daily. 6. Aspirin 81 mg p.o. daily. 7. Femara 2.5 mg p.o. daily. 8. Plavix 75 mg p.o. daily. REVIEW OF SYSTEMS: A 14-point review of systems is complete, and all were negative except for those mentioned in the above HPI. PHYSICAL EXAMINATION: VITAL SIGNS: Temperature is 97.7, heart rate 106, respiratory rate 14, blood pressure 95/54, O2 saturation is 100% on room air. GENERAL: Ms. Jose Manuel Gao is a 68-year-old female. She is in no acute distress. She is able to answer questions appropriately. HEENT: Atraumatic and normocephalic. Pupils are equal, round and reactive to light. Extraocular movements were intact. Mucous membranes are moist. NECK: Trachea midline. CARDIOVASCULAR: S1, S2. Tachycardic rate and rhythm. No rubs, gallops or murmurs. No lower extremity edema. There are plus 2 dorsalis and radial pulses. Negative JVD or carotid bruits. PULMONARY: Clear to auscultation with bilateral breath sounds. No accessory muscle use or work of breathing noted. GASTROINTESTINAL: Soft, nontender and nondistended. Hyperactive bowel sounds x4. EXTREMITIES: Moves all extremities equally, 5/5 strength. NEUROLOGICAL: Alert and oriented x3. Follows commands. Sensory is intact. SKIN: Warm, dry and intact. DIAGNOSTIC DATA: White blood cells 7000, hemoglobin 8, hematocrit 26, platelet count 310. INR is 1.29. PTT is 40. Sodium is 140, potassium 3.2, BUN is 11, creatinine 0.6, glucose 146, calcium 8.4. Bilirubin is 0.27, AST is 13, ALT is 6, albumin 3.0. Urinalysis with 600 protein, trace blood, 20 to 40 white blood cells, greater than 10 epithelial cells, no reported bacteria. IMAGING: Abdominopelvic CT with appendix normal. Small amount of free fluid. Uterus appears to have been removed along with right ovarian mass that was resected. Normal bladder. Gas and stool in the rectum. Some degenerative disk disease in the lumbar spine. Also showed pleural effusions, more on the right, with compressive atelectasis in the right lower lobe. The possibility of pneumonia could not be excluded, but there is no evidence of colitis. ASSESSMENT AND PLAN: 1. Lower gastrointestinal bleed, likely from diverticulosis. We will consult Dr. Mixon. Placed on Protonix drip. N.p.o. for now. 2. Acute blood loss anemia secondary to lower gastrointestinal bleeding. Currently type and screen and iron studies ordered. Serial hemoglobin and hematocrit. Currently hemoglobin is 8. If it drops less than 8, we will transfuse. The patient has been on Plavix and aspirin for the history of stroke, and we will hold that. 3. Chronic constipation. She states prior to today, she had a bowel movement 3 days ago. We will monitor that. 4. Left frontoparietal infarct in the past. She has been on Plavix and aspirin, currently going to hold on that. 5. Right breast cancer history. She is on Femara, but we will hold that. 6. 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 We will do isolation precautions for now. She has been followed by Dr. Sanjuana Sanchez. She has been on Telavancin 450 mg IV daily, started on 01/28/2019, and that is supposed to go until at least 03/03/2019. We will consult Dr. Acuña, and old records have been ordered to apply to the chart. We will continue the Telavancin in the morning. She did have her dose today. Apparently the family drives her to [facility] daily for her medication. 7. Back pain due to this reported MRSA in the spine. She takes Tylenol at home, but it does not work. She can have IV Tylenol here and a very low dose IV morphine until she can have oral dosing. 8. DVT prophylaxis with SCDs. Dictated by ZAK Hernandez for Sai Weiss MD cc: ZAK Hernandez MD
[2019-02-08] MEDS ORDERED: [UNRECOGNIZED DRUG - OTHER] IV SCH (15:00)
[2019-02-08] MEDS ORDERED: NS IV SCH (15:00)
[2019-02-08 15:11] LABS: FERRITIN 208 ng/mL (13-150)
--- NOTE | 2019-02-08 17:43 | INFECTIOUS DISEASE PROGRESS NO ---
DATE: 02/08/2019 PRESENT ILLNESS: I have been consulted to continue treatment with telavancin that the patient's Infectious Disease doctor, Dr. Sanjuana Sanchze, has ordered to treat the patient's infection. 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 Dr. Sanchez has chosen telavancin because the other antibiotics he tried were not successful in treating the patient's infection. MEDICATIONS: As mentioned above, Dr. Sanchez has been treating the patient with telavancin 750 mg IV every 24 hours until March 03. PHYSICAL EXAMINATION: Vital Signs: Temperature is 98 degrees, pulse 87, respirations 18, blood pressure 124/72. General: This is a chronically ill-appearing elderly female. She looks in no acute distress, however. Head, Eyes, Ears, Nose, and Throat: She can hear my spoken words and see near objects. She does not have any white patches on her tongue. Neck: There is no meningismus. Lungs: Clear to auscultation. Cardiovascular: Regular heart rate. Thorax: Patient has had a right mastectomy. Abdomen: Soft and not tender. Neurologic: Patient is awake. She can move her extremities. There is no tremor. DIAGNOSTIC STUDIES: CT scan shows a right pleural effusion with compressive atelectasis. CBC shows a white count of 7870, hemoglobin 8.2, and platelet count 310,000. Creatinine is 0.6, GFR is greater than 60. Liver function studies are normal. Urinalysis showed white cells and no bacteria. Blood and urine cultures are pending. ASSESSMENT AND PLAN: The patient has: 1. Methicillin-resistant Staphylococcus aureus endocarditis. 2. Spinal osteomyelitis. At Dr. Sanchez's request, I am continuing telavancin as mentioned above. Some of the side effects of the antibiotic including renal and ototoxicities have been explained to the patient who agrees with treatment. As mentioned above, the treatment is to last through March 03. COMORBIDITIES: 1. The patient has metastatic breast cancer. 2. She is admitted to the hospital now because of gastrointestinal bleeding. 3. She has had a cerebrovascular accident in 2018. 4. The patient was a heavy cigarette smoker since the age of 17. She said she stopped smoking cigarettes in 1998. 5. She does drink almost half a case of beer daily. 6. She denies using illicit drugs. cc: Miquel Acuña MD
[2019-02-08 19:28] LABS: HEMATOCRIT 21.4 % (37.0-47.0); HEMOGLOBIN 6.8 g/dL (12.0-16.0)
--- NOTE | 2019-02-08 19:46 | HISTORY AND PHYSICAL ---
ADDENDUM: I have seen and examined Ms. Gao today. She presented to the emergency department because of rectal bleed associated with some dizziness. Ms. Gao has recently been diagnosed with MRSA infection in the spine and has been on telavancin on daily basis, going to [facility] that. She also has multiple previous comorbidities. In any case, she had 2 large bowel movements early this morning which were bloody, and then after that, she became dizzy. So she came to the emergency department where she was evaluated and was found to have hemoglobin of 8.3. The last hemoglobin we have on her was 10/28/2017 and it was 13.0. Ms. Gao also has a past medical history of diverticulosis and has had GI bleed in the past. PHYSICAL EXAMINATION: Positive for a right mastectomy with a clean healed scar. Also has a lower abdomen surgical scar. ABDOMEN: There is some tenderness to the lower abdomen but no rebound or guarding. EXTREMITIES: No pedal edema. NEUROLOGIC: The patient is awake, alert, and oriented. SKIN: The patient has chronic changes on the entire skin consistent with a history of eczema. LABORATORY DATA: Has also been reviewed. ASSESSMENT: 1. Gastrointestinal bleed, most likely lower in etiology. The patient did have a similar presentation a couple of years back. Dr. Mixon scoped her in 2016 and found diverticular disease. It is very possible that this is the source of the bleed at this point. We will continue to follow the patient's hemoglobin and hematocrit. Transfuse as needed and Gastroenterology consult. 2. History of right breast carcinoma, status post total radical mastectomy. 3. Previous history of diverticulosis. 4. Chronic constipation. I will continue with bowel regimen. 5. History of multiple strokes in the past. 6. Reported methicillin resistant Staphylococcus aureus infection of the spine. Infectious Disease has been consulted over here. Please refer to the details of the history of present illness, which have been dictated in the chart. cc: Sai Weiss MD
[2019-02-09 03:00] LABS: HEMATOCRIT 27.2 % (37.0-47.0); HEMOGLOBIN 8.8 g/dL (12.0-16.0)
[2019-02-09] MEDS: PROTONIX 80 MG in NS 80 ML IV SCH ×2 (03:55→13:58)
[2019-02-09] MEDS: MORPHINE IV PRN ×4 (06:10→23:02)
[2019-02-09] MEDS: NS 1,000 ML IV SCH ×3 (06:10→20:18)
[2019-02-09 07:52] LABS: INR 1.22; PROTIME 16.3 Seconds (11.0-16.0)
[2019-02-09 07:53] LABS: PTT 30.8 Seconds (22.3-41.8)
[2019-02-09 07:56] LABS: BASO# 0.03 X1000 (0.0-0.2); BASO% 0.6 % (0.0-0.8); EOS# 0.13 X1000 (0.0-0.7); EOS% 2.6 % (0.0-10.0); HEMATOCRIT 26.6 % (37.0-47.0); HEMOGLOBIN 8.7 g/dL (12.0-16.0); LYMPH% 22.4 % (20.5-51.1); MCH 29.3 PG (27-31); MCHC 32.7 g/dL (33-37); MCV 89.6 FL (81-99); MONO# 0.31 X1000 (0.11-0.59); MONO% 6.3 % (1.7-9.3); MPV 10.3 FL (7.4-10.4); NEUT# 3.34 X1000 (1.4-6.5); NEUT% 68.1 % (42.2-75.2); PLT 199 X1000 (130-400); RBC 2.97 XMIL (4.2-5.4); RDW 16.8 % (11.5-14.5); WBC 4.91 X1000 (4.8-10.8)
[2019-02-09 08:17] LABS: AGAP 3; ALB/GLOB RATIO 0.8; ALBUMIN 2.8 g/dL (3.5-5.0); ALKALINE PHOSPHATASE 49 U/L (32-104); BUN 9 mg/dL (8-22); CALCIUM 7.8 mg/dL (8.8-10.2); CHLORIDE 113 mmol/L (98-107); COSMO 281; CREATININE 0.5 mg/dL (0.5-0.9); ESTIMATED GFR > 60; GLUCOSE 82 mg/dL (70-104); GOT 9 U/L (10-30); GPT 5 U/L (10-36); MAGNESIUM 1.3 mg/dL (1.5-2.7); POTASSIUM 2.7 mmol/L (3.5-5.1); SODIUM 142 mmol/L (136-145); TCO2 26 mmol/L (25-35); TOTAL BILIRUBIN 0.25 mg/dL (0.20-1.00); TOTAL PROTEIN 6.2 g/dL (6.3-8.3)
[2019-02-09] MEDS ORDERED: VIBATIV IV SCH (09:00)
[2019-02-09] MEDS: NS IV SCH (09:19)
[2019-02-09] MEDS: [UNRECOGNIZED DRUG - OTHER] IV SCH (09:19)
--- NOTE | 2019-02-09 11:09 | GASTROENTEROLOGY CONSULTATION ---
DATE: 02/09/2019 Reason for consultation: Hematochezia HPI: Ms. Jose Manuel Gao is a 68 year old woman with HTN, HLD, history of CVA with residual RLE weakness on ASA/plavix, right breast cancer s/p mastectomy, alcohol abuse, chronic constipation, prior recurrent diverticular bleeding (last colonoscopy 2015 and 2013), s/p hysterectomy, MRSA endocarditis on antibiotics who presents with two episodes of BRBPR with dark red blood with clots. She reports the bleeding as being painless. No N/V, CP, SOB, abdominal pain, melena. No NSAID use. She reports weight loss since being diagnosed with endocarditis. +back pain REVIEW OF SYSTEMS: as per HPI, otherwise 12 point ROS was negative PAST MEDICAL HISTORY: 1. GI bleed in 2013 and another reported one in 2015, likely diverticular. 2. Diverticulosis. 3. Chronic constipation. 4. Right-sided breast cancer, status post mastectomy. 5. Left frontoparietal infarct. 6. A more recent infarct, cerebrovascular accident in 10/2017. 7. HTN PAST SURGICAL HISTORY: 1. Right mastectomy. 2. Hysterectomy. 3. In 2015, EGD and colonoscopy. Colonoscopy 2013 4. After the right mastectomy, had more margins removed. SOCIAL HISTORY: Quit smoking in 1998 but prior to that smoked 1 pack per day since age of 17. She has drinks about 3 beers per day. Denies illicit drug use. FAMILY HISTORY: Father had gastric cancer. There is also hypertension and asthma in the family. ALLERGIES: No known drug allergies. HOME MEDICATIONS: 1. Tylenol 325 mg p.o. every 6 hours p.r.n. 2. Multivitamin once daily. 3. Metoprolol 25 mg p.o. daily. 4. Norvasc 5 mg p.o. daily. 5. Pravachol 20 mg p.o. daily. 6. Aspirin 81 mg p.o. daily. 7. Femara 2.5 mg p.o. daily. 8. Plavix 75 mg p.o. daily. PE: VS: T 98.5 HR 79 RR 18 BP 152/62 O2 sat 98RA GEN: awake, alert, NAD HEENT: anicteric, MMM, EOMI NECK: supple, no jvd PULM: CTAB, no wheezing CV: RRR, no murmurs ABD: surgical scar, soft NT/ND, NABSx4 EXT: no cce NEURO: nonfocal LABS: CMP notable for K 2.7 WBC 4.9 Hgb 9.3 from 6.8 after 2 units pRBCs plts 199K INR 1.2 BCx2 pending UC pending UA pro 600, trace blood, WBC 20-40, >[address] A/P with IV 02/08 IMPRESSION: Pleural effusions particularly on the right with compressive atelectasis in the right lower lobe. The possibility of pneumonia cannot be excluded. There is no evidence of colitis. A/P: Ms. 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 She is on DAPT after stroke last year. VSS. She is also on antibiotics for recent diagnosis of endocarditis. She has not had a bowel movement since yesterday suggesting resolution of bleed and hgb has stabilized. #LGIB: diverticular: advance diet as tolerated; trend H/H daily, maintain 2 large bore IVs; s/p IVF; holding DAPT; stop PPI as this is not likely UGIB #Endocarditis: on abx; ID following, apprec recs #Anemia: from above #HTN: holding BP meds in setting of GI bleed #Diverticulosis: pandiverticulosis on colonoscopy in 2013 Will follow with you. Please call with questions [facility] CENTERAshlee
[2019-02-09] MEDS: CARAFATE LIQUID PO SCH ×2 (13:14→20:18)
[2019-02-09 13:50] LABS: HEMATOCRIT 27.7 % (37.0-47.0); HEMOGLOBIN 9.1 g/dL (12.0-16.0)
--- NOTE | 2019-02-09 17:02 | PROGRESS NOTE ---
DATE: 02/09/2019 SUBJECTIVE: The patient resting comfortably in bed. OBJECTIVE: Vital signs: Temperature 98.4 degrees, pulse 82, respirations 18, blood pressure 149/79, oxygen saturation 99%. HEENT: Atraumatic, normocephalic. Cardiovascular: S1, S2. Respiratory system: Has evidence of good air entry bilaterally. Abdomen: Soft, nontender. No masses felt. Extremities: No evidence of edema. Central nervous system: No obvious focal deficit noted. LABORATORY DATA: WBCs 4.91, hematocrit is 37.7, with a platelet count of 199. Sodium is 142, potassium 2.7, chloride is 113, bicarbonate is 26, BUN is 9, creatinine 0.5. ASSESSMENT AND PLAN: 1. Gastrointestinal bleed. Maintain patient on proton pump inhibitor. Follow up on hemoglobin, hematocrit. Transfuse packed red blood cells if needed. Gastroenterology following. 2. History of right breast cancer status post total radical mastectomy. Aware. 3. Chronic constipation. Continue bowel regimen. 4. History of multiple cerebrovascular accidents. Aware. 5. Methicillin-resistant Staphylococcus aureus infection of the spine. Infectious Disease consulted. cc: Ameya Patterson MD
[2019-02-09 19:46] LABS: HEMATOCRIT 28.7 % (37.0-47.0); HEMOGLOBIN 9.3 g/dL (12.0-16.0)
[2019-02-10 01:41] LABS: HEMATOCRIT 27.6 % (37.0-47.0); HEMOGLOBIN 8.9 g/dL (12.0-16.0)
[2019-02-10] MEDS: NS 1,000 ML IV SCH ×3 (01:45→04:50)
[2019-02-10] MEDS: MORPHINE IV PRN ×3 (03:02→13:23)
--- NOTE | 2019-02-10 07:11 | INFECTIOUS DISEASE PROGRESS NO ---
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 Sanjuana Sanchez of [place]. He has put the patient on telavancin because the other antibiotics he tried were unsuccessful. MEDICATIONS: As mentioned above, the patient is on telavancin in a dose of 750 mg IV every 24 hours. The patient is to take the treatment until March 03. PHYSICAL EXAMINATION: Vital Signs: Temperature is 98.9 degrees, pulse 74, respirations 18, blood pressure 143/60. General: This is a chronically ill-appearing, elderly female. She is in no acute distress. She did say, overnight, she had a little bit of abdominal pain but that is getting better this morning. Head, Eyes, Ears, Nose, and Throat: She can hear my spoken words and see near objects. There is no white coating on her tongue. Neck: There is no pain with movement of the neck. Lungs: Clear to auscultation. Cardiovascular: Regular heart rate. Abdomen: Soft and nontender. Neurologic: The patient is awake. She can move her extremities. There is no tremor. LAB AND X-RAY: Hemoglobin and hematocrit are 8.9 and 27.6 respectively. Urine culture is negative. Blood cultures are pending. There is no new radiographic study for today. ASSESSMENT AND PLAN: As mentioned above, the patient has methicillin-resistant Staphylococcus aureus endocarditis with an accompanying osteomyelitis of the spine. The patient is being treated with telavancin. The dose is 750 mg intravenous daily and the plan, as per Dr. Sanchez, is to treat until March 03. COMORBIDITIES: The patient has breast cancer. She has had GI bleeding. She has had cerebrovascular disease. She is a heavy cigarette smoker, who has finally quit. The patient does consume what I think is a large amount of alcoholic beverages, specifically beer, on a daily basis. She denies using illicit drugs. cc: Miquel Acuña MD
[2019-02-10] MEDS: [UNRECOGNIZED DRUG - OTHER] IV SCH (08:03)
[2019-02-10] MEDS: NS IV SCH (08:03)
[2019-02-10 16:08] VITALS: BP 158/80
[2019-02-10] MEDS ORDERED: PROTONIX IV SCH (16:15)
[2019-02-10] MEDS ORDERED: SODIUM CHLORIDE 0.9% INJ SCH (16:15)
--- NOTE | 2019-02-10 16:23 | PROGRESS NOTE ---
DATE: 02/10/2019 SUBJECTIVE: The patient resting in bed. OBJECTIVE: Vital Signs: Temperature 98.4 degrees, pulse 84, respiratory 16, blood pressure is 122/40 and oxygen saturation is 100%. HEENT: Atraumatic, normocephalic. Cardiovascular: S1, S2. Respiratory: Evidence of good entry bilaterally. Abdomen: Soft and nontender. No masses felt. Extremities: No evidence of edema. Central nervous system: No obvious focal deficit noted. LABORATORY DATA: Hematocrit 27.6 and INR is 1.2. UA shows about 10 to 40 WBCs per high-power field. ASSESSMENT AND PLAN: 1. Gastrointestinal bleed. Maintain patient on proton pump inhibitor. Continue to follow up on hemoglobin and hematocrit. Transfuse packed red blood cells if needed. GI is following. 2. History of right breast cancer status post radical mastectomy. Aware. 3. MRSA infection of the spine. Continue antibiotics as recommended by Infectious Disease. 4. History of multiple CVA. Aware. 5. History of constipation. Continue bowel regimen. 6. Disposition: We will discharge the patient home if no further GI workup is planned at this time. cc: Aemya Patterson MD
[2019-02-10 16:56] LABS: AGAP 9; BUN 5 mg/dL (8-22); CALCIUM 8.3 mg/dL (8.8-10.2); CHLORIDE 107 mmol/L (98-107); COSMO 276; CREATININE 0.7 mg/dL (0.5-0.9); ESTIMATED GFR > 60; GLUCOSE 117 mg/dL (70-104); POTASSIUM 2.8 mmol/L (3.5-5.1); SODIUM 139 mmol/L (136-145); TCO2 23 mmol/L (25-35)
[2019-02-10] MEDS ORDERED: KLOR-CON PO ONE (17:30)
--- NOTE | 2019-02-10 22:55 | PROVIDER PROGRESS NOTE ---
Progress Note SUBJECTIVE: No acute overnight events. No N/V/F, CP, SOB, abdominal pain, rectal bleeding. She had a normal brown stool yesterday. OBJECTIVE: Last Vital Signs Temp 98.2 F 02/10/19 16:00 Pulse 84 02/10/19 16:00 Resp 15 02/10/19 16:00 BP 158/80 02/10/19 16:00 Pulse Ox 100 02/10/19 16:00 Height 5 ft 4 in Weight 150 lb GEN: awake, alert, NAD HEENT: anicteric, MMM NECK: supple, no jvd CV: RRR, no murmurs PULM: CTAB, no wheezing ABD: soft NT/ND, NABS EXT: no cce NEURO: nonfocal LABS: 02/10/19 02/10/19 01:35 16:22 Hgb 8.9 L Sodium 139 Potassium 2.8 L Chloride 107 Carbon Dioxide 23 L BUN 5 L Creatinine 0.7 Glucose 117 H A/P: Ms. Jose Manuel Gao is a 68 year old woman with HTN, HLD, history of CVA with residual RLE weakness on ASA/plavix, right breast cancer s/p mastectomy, alcohol abuse, chronic constipation, prior recurrent diverticular bleeding (last colonoscopy 2015 and 2013), s/p hysterectomy, MRSA endocarditis on antibiotics who presented with recurrent diverticular bleed. LGIB resolved. Hgb stable. Patient had normal brown stool yesterday. #LGIB: diverticular: hgb stable; resume home DAPT upon discharge #Endocarditis: on abx; ID following, apprec recs #Anemia: from above #HTN: resume home BP meds upon discharge #Diverticulosis: pandiverticulosis; high fiber diet; avoid constipation Patient discharged today
--- NOTE | 2019-02-10 23:27 | DISCHARGE SUMMARY ---
ADMISSION DATE: 02/08/2019 DISCHARGE DATE: 02/10/2019 PRINCIPAL DIAGNOSIS: Gastrointestinal bleed. SECONDARY DIAGNOSES: 1. Diverticulosis. 2. Chronic constipation. 3. Right-sided breast cancer, status post mastectomy. 4. History of cerebrovascular accident. 5. History of methicillin-resistant Staphylococcus aureus involving the spine. DISCHARGE MEDICATIONS: Include the following, letrozole 2.5 mg once a day, amlodipine 5 mg p.o. daily, metoprolol 25 mg p.o. daily, multivitamin 1 p.o. daily, pravastatin 20 mg p.o. daily, acetaminophen 325 mg every 6 hours. CONSULTATIONS DURING HOSPITAL STAY: 1. Dr. Miquel Acuña, Infectious Disease. 2. Dr. Al Blackmon, Gastroenterology. PROCEDURES DONE DURING THIS HOSPITAL STAY: A CT scan of the abdomen and pelvis on 02/08/2019. HOSPITAL COURSE: Ms. Jose Manuel Gao is a 68-year-old female who comes to the hospital because of bloody stools. Apparently, she takes antiplatelets, aspirin as well as Plavix, for her recent stroke. The patient was placed on PPI and she was seen by the GI team. No GI workup recommended. The patient can now be discharged home. She will need to follow up with her primary physician, also follow up with Gastroenterology in the outpatient. DISCHARGE PHYSICAL EXAMINATION: Vital signs: During my evaluation today, temperature 98.2 degrees, pulse 84, respiratory rate 15, blood pressure 152/80, oxygen is 100%. HEENT: Atraumatic, normocephalic. Cardiovascular: S1, S2. Respiratory: Has evidence of good air entry bilaterally. Abdomen: Soft, nontender. No masses felt. Extremities: No evidence of edema. Central nervous system: No obvious focal deficits. DISCHARGE PLAN: Discharge home today. Follow up with primary care physician as well as a GI in the outpatient. Also, continue intravenous antibiotics as recommended by the patient's Infectious Disease specialist at [facility], Dr. Sanjuana Sanchez. cc: Ameya Patterson MD
[2019-02-11] MEDS ORDERED: PROTONIX IV SCH (13:22)
== END 2019-02-10 18:00 | disposition home or self-care (01) | DRG 377 ==
LOC: SUPCPDRO → ED 10:51 → SUATTDRO 13:32 → EDIPHOLD 13:32 → 3S 02-09 13:20
PROVIDERS: ATTEND Internal Medicine
CPT/HCPCS: 36430; 51701; 74177; 80048; 80053; 81001; 82270; 82607; 82728; 82746; 83540; 83550; 83605; 83735; 85014; 85018; 85025; 85610; 85730; 86850; 86900; 86901; 86920; 87040; 87088; 94761; 94799; 96365; 96366; 96367; 96375; 96376; 97162; 99285; A9270; C9113; J2270; J2405; J3095; J7030; P9016; P9612; Q9967; S0164